=== PATIENT | female | born 1990 | race Caucasian/White ===

== ENCOUNTER 2019-06-27 11:07 | Emergency (ER) | payer BC, SELFPAY ==
[2019-06-27 11:15] VITALS: BP 120/70; PULSE 87; RESP 16; TEMP 37.3; O2SAT 100
--- NOTE | 2019-06-27 11:38 | ED.URI ---
HPI - URI/Sore Throat General Chief Complaint: Upper Respiratory Infection Stated Complaint: FEVER/BODY ACHES/HEADACHE/CHILLS/SORE THROAT Time Seen by Provider: 06/27/19 11:26 Source: patient Mode of arrival: ambulatory Limitations: no limitations History of Present Illness HPI Narrative: 28-year-old female presents for evaluation of symptoms that developed today. She is reporting a fever max 100.2, body aches, headache, sore throat, rhinorrhea, fatigue, bilateral eye pain. She has used no medications for her symptoms. She has been exposed to multiple family members with influenza. She did not get a flu shot this season. She denies any tobacco, vaping, marijuana use. She denies any medical conditions. Denies any wheezing, shortness of breath, chest pain, rash, abnormal swelling, confusion, weakness Related Data Allergies Allergy/AdvReac Type Severity Reaction Status Date / Time acetaminophen [From Percocet] Allergy Itching Verified 06/27/19 11:22 oxycodone [From Percocet] Allergy Itching Verified 06/27/19 11:22 Review of Systems Review of Systems: Narrative: CONSTITUTIONAL: Reports fever, chills, sweats. EYES: Denies visual changes, redness, or discharge. ENT: Reports rhinorrhea, congestion, sore throat.denies otalgia. CARDIOVASCULAR: Denies chest pain, palpitations, or edema. RESPIRATORY: Denies dyspnea. Reports cough GASTROINTESTINAL: Denies abdominal pain, nausea, vomiting, or diarrhea. GENITOURINARY: Denies dysuria, hematuria, urinary frequency, malordous urine SKIN: Denies rash or itching. MUSCULOSKELETAL: Denies back pain, joint pain, swelling. Reports myalgias NEUROLOGIC: Denies numbness, weakness. Reports headache PSYCHIATRIC: Denies anxiety or depression. All systems reviewed & are unremarkable except as noted in HPI and below PMFSH Family History Family History Father Family history of thyroid disease Social History Social History Smoking status: Never smoker Comments At the time of my signature, I agree with nursing past medical, surgical, social and family history. There is no relevant family history pertinent to the presenting complaint. Exam Narrative: Exam Narrative: GENERAL: No distress, well appearing, well nourished, alert and calm HEAD: Normocephalic, atraumatic. No sinus tenderness noted EYES: Pupils equal, round. Extraocular movements intact. Conjunctivae without redness or drainage. EARS: Tympanic membranes without erythema. TM landmarks intact with good light reflex. Ear canals without discharge. NOSE: Nares patent. Nasal turbinates noninflamed. No nasal discharge MOUTH: Mucous membranes moist. No lesions. No cyanosis. Dentition grossly normal. THROAT: Oropharynx without signs erythema, exudates or lesions. Tonsils not enlarged. NECK: Supple. No lymphadenopathy. RESPIRATORY: Airway patent. Chest clear to auscultation bilaterally. Breath sounds equal bilaterally. No retractions. CARDIOVASCULAR: Regular rate and rhythm. No murmurs, rubs, gallops, or clicks. Capillary refill <2 seconds. SKIN: Color normal. Warm and dry. No rashes. NEURO: Alert. Motor intact in all extremities. Muscle tone normal. Course Course Emergency Course: Obtained influenza and strep swabs. Vital Signs Vital signs: Vital Signs Temperature 99.1 F 06/27/19 11:15 Pulse Rate 87 06/27/19 11:15 Respiratory Rate 16 06/27/19 11:15 Blood Pressure 120/70 06/27/19 11:15 Pulse Oximetry 100 06/27/19 11:15 Temperature 99.1 F 06/27/19 11:15 Pulse Rate 87 06/27/19 11:15 Respiratory Rate 16 06/27/19 11:15 Blood Pressure 120/70 06/27/19 11:15 Pulse Oximetry 100 06/27/19 11:15 Reviewed MDM - URI/Sore Throat MDM Narrative Medical decision making narrative: Patient is in no acute distress and is non toxic appearing. She appears well-hydrated with no respiratory distress
== END 2019-06-27 11:51 | disposition home or self-care (01) ==
PROVIDERS: Emergency Provider Nurse Practitioner; PCP Family Medicine
DX: J10.1 Influenza due to other identified influenza virus with other respiratory manifestations (principal)
CPT/HCPCS: 87081; 87804; 87880; 99213; G0463

== ENCOUNTER 2022-11-21 12:59 | Outpatient (CLI) | payer BC, SELFPAY ==
--- NOTE | ~2022-11-21 | XR_ITS ---
EXAMINATION: XR hysterosalpingogram DATE: 11/21/2022 15:14 CDT INDICATION: Infertility TECHNIQUE: Fluoroscopy was provided for a hysterosalpingogram performed by Dr. Rivera. FINDINGS: Initial all round butcher radiographically of the pelvis demonstrates a right pelvic phlebolith. There is normal intraluminal morphology of the uterus. There are multiple gas bubbles and the uterus. The fallopian tubes are normal in appearance and are widely patent, with free spill into the peritoneal c avity from both sides. IMPRESSION: 1. Normal hysterosalpingogram. The uterus demonstrates normal intraluminal morphology and both fall opian tubes are patent. Reviewed, dictated and finalized at location A. IMPRESSION: 1. Normal hysterosalpingogram. The uterus demonstrates normal intraluminal mo rphology and both fallopian tubes are patent.
[2022-11-21 14:39] LABS: Beta HCG Quantitative < 2.39 mIU/ML
--- NOTE | 2022-11-21 15:24 | P.OP_ITS ---
Procedure Note - Detailed Date of Procedure 11/21/22 Pre-op Diagnosis female infertility Post-op Diagnosis Same Procedure Performed Hysterosalpingogram Surgeon Aj Rivera MD Anesthesia None Indications unexplained infertility Findings normal hysterosalpingogram Description of Procedure the patient was placed on the fluoroscopy table. A speculum was placed in the vagina. Cervix was grasped with a tenaculum. The catheter was placed the uterine cavity and the bulb was inflated. The speculum was removed with the angiocath still placed in the intrauterine cavity. Dye was then removed. The catheter. Fluoroscopic images obtained this process. Patient experienced some moderate to severe discomfort. The balloon of the catheter was deflated and the catheter was removed while the images were being obtained. The procedure was terminated. patient lost consciousness, had some rapid limb and neck movement, it is likely not seizure, did have some similarity to seizure activity movementl. There were no complications. Estimated Blood Loss 0 Complications Other complications ( patient lost consciousness, had some rapid limb and neck m ovement, it is likely not seizure, did have some similarity to seizure activity movement) Condition Stable Disposition Other
== END 2022-11-21 13:00 | disposition home or self-care (01) ==
PROVIDERS: PCP Family Medicine; Visit Provider Obstetrics & Gynecology
DX: N97.9 Female infertility, unspecified (principal)
CPT/HCPCS: 36415; 58340; 74740; 84702; Q9966

== ENCOUNTER 2024-03-18 13:09 | Outpatient (CLI) | payer BC, SELFPAY ==
[2024-03-18 14:09] LABS: Add Urine Microscopic? YES; Appearance Urine Cloudy (Clear); Bacteria Urine 1+ /hpf; Bilirubin Urine Negative (Negative); Blood Urine Negative (Negative); Color Urine Yellow (Yellow); Glucose Urine UA Negative (Negative); Ketones Urine Trace mg/dL (Negative); Leukocyte Esterase Ur Trace LEU/UL (Negative); Nitrate Urine Negative (Negative); Non Pathogenic Casts 0-2; Protein Urine Trace mg/dL (Negative); RBC Urine 0-2 /hpf (0-2); Specific Grav Ur 1.025 (1.001-1.035); Squamous Epithelial Cell Urine Occasional /hpf (Few); pH Urine 6.5 (5.0-9.0)
[2024-03-18 14:20] VITALS: BP 132/88; PULSE 95
[2024-03-18 14:24] LABS: OBXCEM ROM Plus Negative (Negative)
== END 2024-03-18 14:20 | disposition home or self-care (01) ==
LOC: ANHOBOP 13:48 → ANHLDR 13:49
PROVIDERS: PCP Obstetrics & Gynecology; Visit Provider Obstetrics & Gynecology
DX: O42.90 Premature rupture of membranes, unspecified as to length of time between rupture and onset of labor, unspecified weeks of gestation (principal); Z3A.00 Weeks of gestation of pregnancy not specified
CPT/HCPCS: 59025; 81001; 84112; 87086

== ENCOUNTER 2024-03-20 14:53 | Outpatient (RCR) | payer BC, SELFPAY ==
--- NOTE | ~2024-03-20 | US_ITS ---
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 FINDINGS: 38 weeks and 0 days There is a single intrauterine gestation in vertex presentation. The placenta is fundal without plac enta previa. cardiac activity and movement is noted with a heart rate of 137 beats per minute. Biophysical profile: breathin of 2 movement: 2 of 2 tone: 2 of 2 Amniotic flu pocket: 2 of 2 Total score: 8 of 8 The deepest vertical pocket of fluid measures 7.6 cm IMPRESSION: 1. Single intrauterine gestation in vertex presentation. 2: Total biophysical profile score of 8 out of 8. Reviewed, dictated and finalized at location A. INE OPERATOR GENERAL
== END 2024-04-03 17:55 | disposition home or self-care (01) ==
LOC: ANHOBOP 14:53
PROVIDERS: PCP Obstetrics & Gynecology; Visit Provider Obstetrics & Gynecology
DX: O36.63X0 Maternal care for excessive fetal growth, third trimester, not applicable or unspecified (principal); Z3A.38 38 weeks gestation of pregnancy
CPT/HCPCS: 76819

== ENCOUNTER 2024-03-27 04:55 | Inpatient (IN) | payer BC, SELFPAY ==
[2024-03-27] VITALS (246 sets, daily range): BP systolic 93–144; BP diastolic 51–95; PULSE 25–153; RESP 13–20; TEMP 36.8–37.4; O2SAT 75–100; BMI 28.0
--- NOTE | 2024-03-27 05:05 | LDADM ---
This patient, Graciela Ramírez, was admitted to Labor/Delivery/Recovery [facility] on 03/27/24 at 04:55. Plans for labor, pain management and were discussed with patient. Patient/family oriented to hospital policies and general routines including ID bracelet, bed and alarms, visiting hours, pain management, procedures, bathroom and other care routines, personal items, smoking policy, room service/diet and guest tray routines, infant security routines, and visiting hours. Patient/Family are encouraged to report perceived risks to care and to ask questions if they do not understand what they are told or what they should do. See OBIX for further documentation.
[2024-03-27 06:23] LABS: Basophils Absolute Auto 0.1 K/mm3 (0.0-0.1); Basophils Percent Auto 0.5 % (0.2-1.2); Eosinophils Absolute Auto 0.1 K/mm3 (0-0.3); Eosinophils Percent Auto 1.3 % (0-4.4); Hemoglobin 12.8 g/dL (12.0-15.0); Immature Granulocyte Absolute 0.07 K/mm3 (0.00-0.031); Immature Granulocyte Percent A 0.7 % (0-0.5); Lymphocytes Absolute Auto 1.56 K/mm3 (0.9-3.2); Lymphocytes Percent Auto 15.8 % (18.3-44.2); Mean Corpuscular HGB Conc 33.7 g/dl (32-36); Mean Corpuscular Hemoglobin 29.1 pg (26-34); Mean Corpuscular Volume 86.4 fl (80-100); Mean Platelet Volume 10.1 fl (7.4-10.4); Monocytes Absolute Auto 0.7 K/mm3 (0.1-0.6); Monocytes Percent Auto 6.6 % (2.6-8.5); Neutrophils Absolute Auto 7.4 K/mm3 (1.3-6.7); Neutrophils Percent Auto 75.1 % (45.5-73.1); Platelet Count Result 245 k/mm3 (150-375); Red Cell Distribution Width 15.3 % (11.5-14.5); White Blood Count 9.9 K/mm3 (4.5-10.0)
--- NOTE | 2024-03-27 06:42 | P.PNAN_ITS ---
Anes - Eval Pre Procedure Procedure: labor epidural Date/Time: 03/27/24 06:42 Preop Diagnosis: pain during labor Pre Op Diagnosis: IOL Patient Data Age: 33 Gender: F Height: 1.75 m Weight: 86 kg Last Vital Signs Pulse 87 03/27/24 06:30 BP 132/91 H 03/27/24 06:30 Pulse Ox 98 03/27/24 06:39 Allergies Allergy/AdvReac Type Severity Reaction Status Date / Time oxycodone [From Percocet] Allergy Mild Itching Verified 03/04/24 12:30 nitrofurantoin AdvReac Intermediate vertigo Verified 03/04/24 12:30 Home Medications Medication Instructions Recorded Confirmed Type bupropion HCl 150 mg 24 hr tablet, 150 mg PO QAM #90 tabs 06/19/23 03/18/24 Rx extended release (Wellbutrin XL) naltrexone 1.5 mg capsule 3 mg PO DAILY 01/22/24 03/18/24 History aspirin 81 mg tablet 162 mg PO DAILY 03/04/24 03/18/24 History ferrous sulfate 325 mg (65 mg 45 mg PO BID 03/04/24 03/27/24 History iron) tablet vits no.126-ferrous fum 1 tablet PO DAILY 03/04/24 03/18/24 History 28 mg iron-folic acid 800 mcg tablet (Classic ) aripiprazole 10 mg tablet 10 mg PO DAILY #90 tabs 03/11/24 03/27/24 Rx sertraline 100 mg tablet (Zoloft) 150 mg PO DAILY 03/18/24 03/27/24 History Laboratory Tests 03/27/24 06:09 WBC 9.9 K/mm3 (4.5-10.0) RBC 4.40 M/mm3 (4.2-5.4) Hgb 12.8 g/dL (12.0-15.0) Hct 38.0 % (37.0-47.0) MCV 86.4 fl (80-100) MCH 29.1 pg (26-34) MCHC 33.7 g/dl (32-36) RDW 15.3 H % (11.5-14.5) Plt Count 245 k/mm3 (150-375) MPV 10.1 fl (7.4-10.4) Immature Gran % (Auto) 0.7 H % (0-0.5) Neut % (Auto) 75.1 H % (45.5-73.1) Lymph % (Auto) 15.8 L % (18.3-44.2) [place] % (Auto) 6.6 % (2.6-8.5) Eos % (Auto) 1.3 % (0-4.4) Baso % (Auto) 0.5 % (0.2-1.2) Lymph # (Auto) 1.56 K/mm3 (0.9-3.2) [place] # (Auto) 0.7 H K/mm3 (0.1-0.6) Eos # (Auto) 0.1 K/mm3 (0-0.3) Baso # (Auto) 0.1 K/mm3 (0.0-0.1) Abs Immat Gran (auto) 0.07 H K/mm3 (0.00-0.031) Absolute Neuts (auto) 7.4 H K/mm3 (1.3-6.7) Absolute Nucleated RBC 0.000 K/mm3 (0.0-0.012) Nucleated RBC % 0.0 % (0.0-0.2) RPR Pending HIV 1&2 Ab/P24 Ag 4thGn Pending Patient hx anesthesia problems: none Family hx anesthesia problems: none Results Review: All pre-operative results and documents have been reviewed as part of the pre- operative evaluation. [facility], [facility] Past Medical History Medical History Allergic rhinitis COVID-19 Granuloma annulare History of chicken pox History of hysterosalpingogram TMJ arthropathy (~2006) Surgical History Surgical History History of hip surgery (~2012) periacetabular osteotomy S/P hip arthroscopy (~2011) [place] teeth extracted (~2009) Family History Family History Father Family history of thyroid disease Social History Social History Smoking status: Never smoker Alcohol intake: current Drinks per week: 0 Alcohol use details: social drinker Substance use: never Do You Feel Safe in your Home?: Yes Lack of Transportation: No Lack of Food: Never True Current Housing: I Have Housing Concerned About Future Housing: No Difficulty Paying Gas/Electric Bills: No Difficulty Paying for Meds: No Currently Unemployed: No Education: Master's Degree or Higher Difficulty w/ Childcare or Family Care: No Occupation/Education: occupation 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
[2024-03-27] MEDS: LACTATED RINGERS 1,000 ML 125 ML IV CONT ×3 (06:45→12:39)
[2024-03-27 07:28] LABS: HIV 1/2 Ab P24 Ag Result Negative (Negative)
[2024-03-27 07:30] LABS: Rapid Plasma Reagin Non-Reactive (NonReactive)
--- NOTE | 2024-03-27 07:35 | PM.IMHP ---
H&P: HPI History of Present Illness Date/Time: 03/27/24 07:35 Chief Complaint: pt here today for elective IOL, complicated by LGA, IVF , anemia, anxiety and depression. hx of hip dysplasia Review of Systems Review of Systems: All systems reviewed & are unremarkable except as noted in HPI and below PMFSH Past Medical History Medical History Allergic rhinitis COVID-19 Granuloma annulare History of chicken pox History of hysterosalpingogram TMJ arthropathy (~2006) Surgical History Surgical History History of hip surgery (~2012) periacetabular osteotomy S/P hip arthroscopy (~2011) [place] teeth extracted (~2009) Family History Family History Father Family history of thyroid disease Social History Social History Smoking status: Never smoker Alcohol intake: current Drinks per week: 0 Alcohol use details: social drinker Substance use: never Do You Feel Safe in your Home?: Yes Lack of Transportation: No Lack of Food: Never True Current Housing: I Have Housing Concerned About Future Housing: No Difficulty Paying Gas/Electric Bills: No Difficulty Paying for Meds: No Currently Unemployed: No Education: Master's Degree or Higher Difficulty w/ Childcare or Family Care: No Occupation/Education: occupation 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 Gender identity (if verbalized by the patient): Female Spiritual care concerns: No Meds Home Medications and Allergies Home Medications Medication Instructions Recorded Confirmed Type bupropion HCl 150 mg 24 hr tablet, 150 mg PO QAM #90 tabs 06/19/23 03/18/24 Rx extended release (Wellbutrin XL) naltrexone 1.5 mg capsule 3 mg PO DAILY 01/22/24 03/18/24 History aspirin 81 mg tablet 162 mg PO DAILY 03/04/24 03/18/24 History ferrous sulfate 325 mg (65 mg 45 mg PO BID 03/04/24 03/27/24 History iron) tablet vits no.126-ferrous fum 1 tablet PO DAILY 03/04/24 03/18/24 History 28 mg iron-folic acid 800 mcg tablet (Classic ) aripiprazole 10 mg tablet 10 mg PO DAILY #90 tabs 03/11/24 03/27/24 Rx sertraline 100 mg tablet (Zoloft) 150 mg PO DAILY 03/18/24 03/27/24 History Allergies Allergy/AdvReac Type Severity Reaction Status Date / Time oxycodone [From Percocet] Allergy Mild Itching Verified 03/04/24 12:30 nitrofurantoin AdvReac Intermediate vertigo Verified 03/04/24 12:30 Vital Signs Vital Signs - 24 hr 03/27/24 05:08 03/27/24 05:09 03/27/24 05:13 Temperature Pulse Rate 102 H Blood Pressure 137/95 H Pulse Oximetry 100 99 03/27/24 05:16 03/27/24 05:17 03/27/24 05:22 Temperature Pulse Rate 99 Blood Pressure 133/88 Pulse Oximetry 83 L 95 98 03/27/24 05:25 03/27/24 05:25 03/27/24 05:25 Temperature Pulse Rate Blood Pressure Pulse Oximetry 100 100 100 03/27/24 05:27 03/27/24 05:27 03/27/24 05:30 Temperature Pulse Rate 82 Blood Pressure 127/81 Pulse Oximetry 100 100 03/27/24 05:32 03/27/24 05:37 03/27/24 05:42 Temperature Pulse Rate Blood Pressure Pulse Oximetry 97 97 97 03/27/24 05:47 03/27/24 05:52 03/27/24 05:57 Temperature Pulse Rate Blood Pressure Pulse Oximetry 97 95 96 03/27/24 06:00 03/27/24 06:02 03/27/24 06:07 Temperature Pulse Rate 84 Blood Pressure 127/86 Pulse Oximetry 95 97 03/27/24 06:09 03/27/24 06:14 03/27/24 06:19 Temperature Pulse Rate Blood Pressure Pulse Oximetry 96 97 97 03/27/24 06:24 03/27/24 06:29 03/27/24 06:30 Temperature Pulse Rate 87 Blood Pressure 132/91 H Pulse Oximetry 97 98 03/27/24 06:34 03/27/24 06:39 03/27/24 06:44 Temperature Pulse Rate Blood Pressure Pulse Oximetry 98 98 98 03/27/24 06:49 03/27/24 06:54 03/27/24 06:57 Temperature Pulse Rate Blood Pressure Pulse Oximetry 99 98 82 L 03/27/24 06:57 03/27/24 06:58 03/27/24 07:04 Temperature Pulse Rate Blood Pressure Pulse Oximetry 86 L 91 98 03/27/24 07:09 03/27/24 07:14 03/27/24 07:19 Temperature Pulse Rate Blood Pressure Pulse Oximetry 98 98 98 03/27/24 07:24 03/27/24 06:45 03/27/24 07:29 Temperature 37.3 C Pulse Rate Blood Pressure Pulse Oximetry 99 98 03/27/24 07:30 03/27/24 07:30 Temperature Pulse Rate 93 Blood Pressure 115/66 Pulse Oximetry 100 99 Exam Const: General: cooperative and healthy appearing Resp: Effort & Inspection: normal respiratory effort Cardio: Rate: regular rate GI: Inspection: normal to inspection Back/Spine/Pelvis: Back: no CVA tenderness Skin: General skin exam: normal color Neuro: General: patient oriented x3 Extrem: General: normal to inspection Psych: Appearance: grossly normal H&P: Results Labs Labs: Short CBC 03/27/24 Range/Units 06:09 WBC 9.9 (4.5-10.0) K/mm3 Hgb 12.8 (12.0-15.0) g/dL Hct 38.0 (37.0-47.0) % Plt Count 245 (150-375) k/mm3 Assessment and Plan Assessment and plan (1) In vitro fertilization: Code(s): Z31.83 - Encounter for assisted reproductive fertility procedure cycle Status: Acute (2) Bipolar 1 disorder, manic, mild: Code(s): F31.11 - Bipolar disorder, current episode manic without psychotic features, mild Status: Acute (3) LGA (large for gestational age) fetus: Status: Acute Plan IOL IVF SVE 1-2/60/-2 AROM small amount of clear odorless fluid, IUPC placed anticipate vaginal delivery
[2024-03-27] MEDS: SODIUM CHLORIDE 0.9% IV 300 ML 600 ML I-UTERINE (08:43)
[2024-03-27] MEDS: SODIUM CHLORIDE 0.9% IV 1,000 ML 150 ML I-UTERINE ×2 (09:33→14:13)
[2024-03-27] MEDS: OXYTOCIN 30 UNITS/NS 500 ML 30 UNITS/500 ML BAG IV CONT (10:01)
[2024-03-27] MEDS: ACETAMINOPHEN 500 MG TABLET 1000 MG PO (18:05)
[2024-03-27] MEDS: AZITHROMYCIN 500 MG/NS 250 ML 500 MG/250 ML BAG 250 MG IVPB (18:06)
[2024-03-27] MEDS: FAMOTIDINE 20 MG/2 ML VIAL IV PUSH (18:11)
[2024-03-27] MEDS: ONDANSETRON INJ 4 MG/2 ML VIAL IV PUSH ×2 (18:11→22:43)
--- NOTE | 2024-03-27 18:18 | PM.IMHP ---
H&P: HPI History of Present Illness Date/Time: 03/27/24 18:18 Chief Complaint: labor Narrative: 33-year-old primiparous female at 39 weeks who presented for induction of labor at 39 weeks electively.. there is nonreassuring heart tones and the induction is failed. We agreed to proceed with delivery. The patient understands the details of the procedure. The procedure has been explained in detail. She understands the risks. She understands that injuries may occur that result in hospitalization, more surgery, and severe illness. She understands risk of hemorrhage and infection. She denies any chest pain or shortness of breath. She denies any nausea, vomiting, fever, chills. Review of Systems Review of Systems: All systems reviewed & are unremarkable except as noted in HPI and below Constitutional: Constitutional: Denies chills, Denies fatigue, Denies fever(s) and Denies weakness Eyes: Eyes: Denies blurry vision, Denies change in vision, Denies loss of peripheral vision, Denies loss of vision, Denies other visual disturbances and Denies eye pain ENT: Denies vertigo, Denies dizziness, Denies hearing loss, Denies mouth pain, Denies nasal obstruction, Denies neck mass and Denies neck pain Cardiovascular: Cardiovascular: Denies chest pain, Denies diaphoresis, Denies syncope, Denies leg edema and Denies dyspnea Respiratory: Respiratory: Denies chest congestion, Denies cough, Denies hemoptysis, Denies dyspnea and Denies wheezing Gastrointestinal: Gastrointestinal: Denies abdominal pain, Denies constipation, Denies diarrhea, Denies nausea and Denies vomiting Genitourinary: Genitourinary: Denies hematuria, Denies change in libido, Denies nocturia, Denies genital lesions, Denies flank pain and Denies urinary urgency Musculoskeletal: Musculoskeletal: Denies abnormal gait, Denies back pain, Denies myalgias, Denies arthralgias, Denies joint swelling, Denies muscle weakness and Denies neck pain Integumentary/Breasts: Skin/Breast: Denies swelling, Denies breast pain, Denies breast mass, Denies dry skin, Denies nipple discharge, Denies unusual bruising and Denies jaundice Neurologic: Denies Neuro-related abnormal movements, Denies Abnormal speech present, Denies abnormal gait, Denies behavioral changes, Denies confusion, Denies vertigo, Denies dizziness, Denies syncope, Denies loss of vision, Denies memory loss, Denies convulsions and Denies weakness Psychiatric: Psychiatric: Denies abnormal sleep pattern, Denies behavioral changes, Denies change in libido, Denies confusion, Denies depression, Denies anhedonia and Denies memory loss Endocrine: Endocrine: Reports no additional endocrine complaints, Denies change in libido and Denies fatigue Hematologic/Lymphatic: Hematologic/Lymphatic: Reports no additional hematologic/lymphatic complaints Allergic/Immunologic: Allergic/Immunologic: Reports no additional allergic/immunologic complaints and Denies wheezing PMFSH Past Medical History Medical History Allergic rhinitis COVID-19 Granuloma annulare History of chicken pox History of hysterosalpingogram TMJ arthropathy (~2006) Surgical History Surgical History History of hip surgery (~2012) periacetabular osteotomy S/P hip arthroscopy (~2011) [place] teeth extracted (~2009) Family History Family History Father Family history of thyroid disease Social History Social History Smoking status: Never smoker Alcohol intake: current Drinks per week: 0 Alcohol use details: social drinker Substance use: never Do You Feel Safe in your Home?: Yes Lack of Transportation: No Lack of Food: Never True Current Housing: I Have Housing Concerned About Future Housing: No Difficulty Paying Gas/Electric Bills: No Difficulty Paying for Meds: No Currently Unemployed: No Education: Master's Degree or Higher Difficulty w/ Childcare or Family Care: No Occupation/Education: occupation 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 Gender identity (if verbalized by the patient): Female Spiritual care concerns: No Meds Home Medications and Allergies Home Medications Medication Instructions Recorded Confirmed Type bupropion HCl 150 mg 24 hr tablet, 150 mg PO QAM #90 tabs 06/19/23 03/18/24 Rx extended release (Wellbutrin XL) naltrexone 1.5 mg capsule 3 mg PO DAILY 01/22/24 03/18/24 History aspirin 81 mg tablet 162 mg PO DAILY 03/04/24 03/18/24 History ferrous sulfate 325 mg (65 mg 45 mg PO BID 03/04/24 03/27/24 History iron) tablet vits no.126-ferrous fum 1 tablet PO DAILY 03/04/24 03/18/24 History 28 mg iron-folic acid 800 mcg tablet (Classic ) aripiprazole 10 mg tablet 10 mg PO DAILY #90 tabs 03/11/24 03/27/24 Rx sertraline 100 mg tablet (Zoloft) 150 mg PO DAILY 03/18/24 03/27/24 History Allergies Allergy/AdvReac Type Severity Reaction Status Date / Time oxycodone [From Percocet] Allergy Mild Itching Verified 03/04/24 12:30 nitrofurantoin AdvReac Intermediate vertigo Verified 03/04/24 12:30 Vital Signs Vital Signs - 24 hr 03/27/24 05:08 03/27/24 05:09 03/27/24 05:13 Temperature Pulse Rate 102 H Blood Pressure 137/95 H Pulse Oximetry 100 99 03/27/24 05:16 03/27/24 05:17 03/27/24 05:22 Temperature Pulse Rate 99 Blood Pressure 133/88 Pulse Oximetry 83 L 95 98 03/27/24 05:25 03/27/24 05:25 03/27/24 05:25 Temperature Pulse Rate Blood Pressure Pulse Oximetry 100 100 100 03/27/24 05:27 03/27/24 05:27 03/27/24 05:30 Temperature Pulse Rate 82 Blood Pressure 127/81 Pulse Oximetry 100 100 03/27/24 05:32 03/27/24 05:37 03/27/24 05:42 Temperature Pulse Rate Blood Pressure Pulse Oximetry 97 97 97 03/27/24 05:47 03/27/24 05:52 03/27/24 05:57 Temperature Pulse Rate Blood Pressure Pulse Oximetry 97 95 96 03/27/24 06:00 03/27/24 06:02 03/27/24 06:07 Temperature Pulse Rate 84 Blood Pressure 127/86 Pulse Oximetry 95 97 03/27/24 06:09 03/27/24 06:14 03/27/24 06:19 Temperature Pulse Rate Blood Pressure Pulse Oximetry 96 97 97 03/27/24 06:24 03/27/24 06:29 03/27/24 06:30 Temperature Pulse Rate 87 Blood Pressure 132/91 H Pulse Oximetry 97 98 03/27/24 06:34 03/27/24 06:39 03/27/24 06:44 Temperature Pulse Rate Blood Pressure Pulse Oximetry 98 98 98 03/27/24 06:49 03/27/24 06:54 03/27/24 06:57 Temperature Pulse Rate Blood Pressure Pulse Oximetry 99 98 82 L 03/27/24 06:57 03/27/24 06:58 03/27/24 07:04 Temperature Pulse Rate Blood Pressure Pulse Oximetry 86 L 91 98 03/27/24 07:09 03/27/24 07:14 03/27/24 07:19 Temperature Pulse Rate Blood Pressure Pulse Oximetry 98 98 98 03/27/24 07:24 03/27/24 06:45 03/27/24 07:29 Temperature 99.1 F Pulse Rate Blood Pressure Pulse Oximetry 99 98 03/27/24 07:30 03/27/24 07:30 03/27/24 07:35 Temperature Pulse Rate 93 Blood Pressure 115/66 Pulse Oximetry 100 99 100 03/27/24 07:40 03/27/24 07:45 03/27/24 07:50 Temperature Pulse Rate Blood Pressure Pulse Oximetry 100 98 99 03/27/24 07:55 03/27/24 08:00 03/27/24 08:05 Temperature Pulse Rate 84 Blood Pressure 123/60 Pulse Oximetry 100 99 99 03/27/24 08:10 03/27/24 08:15 03/27/24 08:20 Temperature Pulse Rate Blood Pressure Pulse Oximetry 100 100 100 03/27/24 08:25 03/27/24 08:30 03/27/24 08:34 Temperature Pulse Rate 87 Blood Pressure 120/66 Pulse Oximetry 100 100 03/27/24 08:35 03/27/24 08:38 03/27/24 08:40 Temperature Pulse Rate 88 91 90 Blood Pressure 116/53 L 124/77 133/74 Pulse Oximetry 100 100 03/27/24 08:42 03/27/24 08:45 03/27/24 08:48 Temperature Pulse Rate 95 89 89 Blood Pressure 123/79 130/74 130/76 Pulse Oximetry 99 03/27/24 08:50 03/27/24 08:51 03/27/24 08:54 Temperature Pulse Rate 85 91 Blood Pressure 127/81 133/82 Pulse Oximetry 100 03/27/24 08:55 03/27/24 08:57 03/27/24 09:00 Temperature Pulse Rate 88 105 H Blood Pressure 127/81 93/65 L Pulse Oximetry 100 100 03/27/24 09:03 03/27/24 09:05 03/27/24 09:06 Temperature Pulse Rate 90 90 Blood Pressure 119/82 129/71 Pulse Oximetry 100 03/27/24 09:09 03/27/24 09:10 03/27/24 09:12 Temperature Pulse Rate 82 98 Blood Pressure 128/82 112/83 Pulse Oximetry 99 03/27/24 09:15 03/27/24 09:20 03/27/24 09:24 Temperature Pulse Rate 86 Blood Pressure 123/68 Pulse Oximetry 100 100 100 03/27/24 09:29 03/27/24 09:30 03/27/24 09:34 Temperature Pulse Rate 78 Blood Pressure 105/57 L Pulse Oximetry 100 100 03/27/24 09:39 03/27/24 09:44 03/27/24 09:45 Temperature Pulse Rate 80 Blood Pressure 112/55 L Pulse Oximetry 100 100 03/27/24 09:49 03/27/24 09:54 03/27/24 09:59 Temperature Pulse Rate Blood Pressure Pulse Oximetry 100 100 100 03/27/24 10:00 03/27/24 10:04 03/27/24 10:09 Temperature Pulse Rate 76 Blood Pressure 109/57 L Pulse Oximetry 100 100 03/27/24 10:14 03/27/24 10:15 03/27/24 10:19 Temperature Pulse Rate 87 Blood Pressure 133/87 Pulse Oximetry 100 100 03/27/24 10:08 03/27/24 10:24 03/27/24 10:29 Temperature 98.8 F Pulse Rate Blood Pressure Pulse Oximetry 100 100 03/27/24 10:30 03/27/24 10:30 03/27/24 10:30 Temperature Pulse Rate Blood Pressure 144/78 H Pulse Oximetry 100 100 03/27/24 10:30 03/27/24 10:35 03/27/24 10:40 Temperature Pulse Rate 84 Blood Pressure Pulse Oximetry 100 100 03/27/24 10:45 03/27/24 10:50 03/27/24 10:55 Temperature Pulse Rate 81 Blood Pressure 132/84 Pulse Oximetry 100 100 100 03/27/24 11:00 03/27/24 11:05 03/27/24 11:10 Temperature Pulse Rate 74 Blood Pressure 127/79 Pulse Oximetry 100 100 98 03/27/24 11:15 03/27/24 11:20 03/27/24 11:23 Temperature Pulse Rate 68 Blood Pressure 122/73 Pulse Oximetry 99 100 03/27/24 11:25 03/27/24 11:30 03/27/24 11:35 Temperature Pulse Rate 75 Blood Pressure 119/60 Pulse Oximetry 99 99 99 03/27/24 11:40 03/27/24 11:45 03/27/24 11:50 Temperature Pulse Rate 104 H Blood Pressure 134/75 Pulse Oximetry 99 100 100 03/27/24 11:55 03/27/24 12:00 03/27/24 12:03 Temperature Pulse Rate 87 Blood Pressure 142/82 H Pulse Oximetry 100 100 100 03/27/24 12:03 03/27/24 12:04 03/27/24 12:09 Temperature Pulse Rate Blood Pressure Pulse Oximetry 100 100 100 03/27/24 12:14 03/27/24 12:15 03/27/24 12:19 Temperature Pulse Rate 79 Blood Pressure 121/71 Pulse Oximetry 100 100 03/27/24 12:24 03/27/24 12:29 03/27/24 12:30 Temperature Pulse Rate 84 Blood Pressure 111/66 Pulse Oximetry 97 98 03/27/24 12:34 03/27/24 12:39 03/27/24 12:44 Temperature Pulse Rate Blood Pressure Pulse Oximetry 100 100 100 03/27/24 12:45 03/27/24 12:49 03/27/24 12:54 Temperature Pulse Rate 84 Blood Pressure 124/78 Pulse Oximetry 100 98 03/27/24 12:59 03/27/24 13:00 03/27/24 13:04 Temperature Pulse Rate 84 Blood Pressure 131/83 Pulse Oximetry 97 100 03/27/24 13:09 03/27/24 13:14 03/27/24 13:15 Temperature Pulse Rate 103 H Blood Pressure 107/77 Pulse Oximetry 100 100 03/27/24 13:19 03/27/24 13:23 03/27/24 13:28 Temperature Pulse Rate Blood Pressure Pulse Oximetry 99 93 98 03/27/24 13:30 03/27/24 13:33 03/27/24 13:38 Temperature Pulse Rate 99 Blood Pressure 119/80 Pulse Oximetry 100 100 03/27/24 13:38 03/27/24 13:43 03/27/24 13:45 Temperature Pulse Rate 100 Blood Pressure 114/68 Pulse Oximetry 100 100 03/27/24 13:48 03/27/24 13:53 03/27/24 13:58 Temperature Pulse Rate Blood Pressure Pulse Oximetry 100 100 100 03/27/24 14:00 03/27/24 14:03 03/27/24 14:08 Temperature Pulse Rate 100 Blood Pressure 118/73 Pulse Oximetry 100 100 03/27/24 14:13 03/27/24 14:15 03/27/24 14:12 Temperature 98.2 F Pulse Rate 74 Blood Pressure 113/59 L Pulse Oximetry 100 03/27/24 14:18 03/27/24 14:23 03/27/24 14:29 Temperature Pulse Rate Blood Pressure Pulse Oximetry 100 100 97 03/27/24 14:30 03/27/24 14:34 03/27/24 14:39 Temperature Pulse Rate 75 Blood Pressure 115/51 L Pulse Oximetry 100 100 03/27/24 14:40 03/27/24 14:43 03/27/24 14:47 Temperature Pulse Rate 81 Blood Pressure 113/56 L Pulse Oximetry 100 100 03/27/24 14:48 03/27/24 14:53 03/27/24 14:58 Temperature Pulse Rate Blood Pressure Pulse Oximetry 100 100 100 03/27/24 15:00 03/27/24 15:02 03/27/24 15:07 Temperature Pulse Rate 79 Blood Pressure 114/65 Pulse Oximetry 100 100 03/27/24 15:12 03/27/24 15:15 03/27/24 15:17 Temperature Pulse Rate 80 Blood Pressure 109/57 L Pulse Oximetry 99 98 03/27/24 15:22 03/27/24 15:27 03/27/24 15:30 Temperature Pulse Rate 86 Blood Pressure 105/55 L Pulse Oximetry 99 99 03/27/24 15:32 03/27/24 15:37 03/27/24 15:42 Temperature Pulse Rate Blood Pressure Pulse Oximetry 100 100 99 03/27/24 15:45 03/27/24 15:47 03/27/24 15:52 Temperature Pulse Rate 84 Blood Pressure 105/57 L Pulse Oximetry 98 99 03/27/24 15:57 03/27/24 16:02 03/27/24 16:02 Temperature Pulse Rate Blood Pressure Pulse Oximetry 99 100 100 03/27/24 16:02 03/27/24 16:03 03/27/24 16:08 Temperature Pulse Rate Blood Pressure Pulse Oximetry 100 98 100 03/27/24 16:10 03/27/24 16:15 03/27/24 16:20 Temperature Pulse Rate 70 Blood Pressure 108/51 L Pulse Oximetry 100 100 100 03/27/24 16:25 03/27/24 16:30 03/27/24 16:35 Temperature Pulse Rate 80 Blood Pressure 112/73 Pulse Oximetry 100 99 100 03/27/24 16:40 03/27/24 16:45 03/27/24 16:50 Temperature Pulse Rate 74 Blood Pressure 118/76 Pulse Oximetry 100 100 100 03/27/24 16:55 03/27/24 16:56 03/27/24 17:00 Temperature Pulse Rate 77 Blood Pressure 124/80 Pulse Oximetry 100 96 03/27/24 17:01 03/27/24 17:06 03/27/24 17:11 Temperature Pulse Rate Blood Pressure Pulse Oximetry 100 100 100 03/27/24 17:12 03/27/24 17:12 03/27/24 17:15 Temperature Pulse Rate 95 Blood Pressure 119/84 Pulse Oximetry 75 L 76 L 03/27/24 17:17 03/27/24 17:21 03/27/24 17:26 Temperature Pulse Rate Blood Pressure Pulse Oximetry 100 97 100 03/27/24 17:28 03/27/24 17:28 03/27/24 17:33 Temperature Pulse Rate Blood Pressure Pulse Oximetry 77 L 77 L 99 03/27/24 17:38 03/27/24 17:43 03/27/24 17:51 Temperature Pulse Rate Blood Pressure Pulse Oximetry 100 100 75 L Exam Const: General: cooperative, healthy appearing, comfortable and no acute distress Orientation/consciousness: oriented to person, oriented to place and oriented to time HENMT: Head: normal to inspection Ears: external ears normal Face/Nose/Sinus: Normal external nose present and normal facial exam Face and sinus: normal facial exam Eyes: General: appearance normal, both eyes and all related structures Neck: Neck: normal visual inspection, trachea midline and supple Resp: Auscultation: clear to auscultation bilaterally, no crackles, no rales, no rhonchi and no wheezes Cardio: Rate: regular rate Rhythm: regular rhythm Heart sounds: no click, no murmurs and no rubs GI: GI Palp: No abdominal tenderness, No Soft to palpation, No Tenderness to palpation present (GI) and No Palpable mass present Auscultation: normal bowel sounds Skin: General skin exam: normal color and no rashes or lesions noted Neuro: General: oriented to person, oriented to place and oriented to time Extrem: General: normal to inspection, no joint enlargement, no clubbing, cyanosis or edema, no pedal edema and no calf tenderness Psych: Appearance: grossly normal Mental Status: mental status grossly normal Speech and movement: Normal speech and movement present H&P: Results Labs Labs: Short CBC 03/27/24 Range/Units 06:09 WBC 9.9 (4.5-10.0) K/mm3 Hgb 12.8 (12.0-15.0) g/dL Hct 38.0 (37.0-47.0) % Plt Count 245 (150-375) k/mm3 Assessment and Plan Assessment and plan (1) Non-reassuring heart tones complicating , antepartum: Code(s): O36.8390 - Maternal care for abnormalities of the heart rate or rhythm, unspecified trimester, not applicable or unspecified Status: Acute (2) Failed induction of labor: Code(s): O61.9 - Failed induction of labor, unspecified Status: Acute Plan this patient is a 33-year-old female with failed induction and nonreassuring heart tones. We agreed to perform delivery. She understands risks, benefits, and alternatives. She has completed informed consent process is ready to proceed.
--- NOTE | 2024-03-27 18:23 | WPDHPUPDATE1 ---
History and Physical Update Update Date/Time: 03/27/24 18:23 History and Physical has been reviewed, including an updated exam of the patient. There are NO changes in the patient's condition. Risks, benefits, and alternatives have been discussed and questions answered. Patient agrees to proceed with procedure.
--- NOTE | 2024-03-27 19:13 | W.PM.OBCSD ---
OB - Delivery Note Procedure Delivery date: 03/27/24 Pre-op diagnosis: Failed Induction of Labor and Non-Reassuring Status Post-op Diagnosis: Same Procedure Performed: Primary Surgeon: Kamar Rivera MD Anesthesia type: Spinal Description of Procedure/Findings: The patient was taken the operating room.? She was prepped and draped in dorsal supine position with a leftward tilt.? This was done after spinal anesthetic was applied.? A low-transverse skin incision was made and carried down till of the fascia with the knife.? The fascial incision was made with the knife.? The fascial incision was extended laterally with Juarez scissors.? The fascia was tented upward superiorly and inferiorly the rectus muscles were dissected off bluntly.? The rectus muscles were the midline.? The preperitoneal fat and peritoneum were dissected open bluntly at the superior aspect of the rectus muscles.? The peritoneal incision was extended superior and inferior with good position of bladder.? The uterine incision was made with a scalpel down to the level of the amniotic cavity.? The amniotic cavity was entered bluntly.? The was delivered.? The cord was clamped and cut and the infant was handed off to waiting pediatric staff.? Cord bloods were obtained.? The placenta was removed manually.? The uterus was exteriorized.? The uterus was cleared of all clots, debris and membranes.? The uterus was closed in 0 Vicryl running lock fashion.? An imbricating over a was placed along the incision line as well.? The uterus was returned to the abdomen.? The gutters were cleared of all clots and debris.? The fascia was closed with 0 Vicryl running fashion.? The subcutaneous tissue was irrigated pinpoint bleeders were cauterized.? The skin was closed with subcuticular absorbable lin.? The skin incision line was covered with glue.? The patient tolerated the procedure well.? She has taken recovery room in stable condition.? Sponge lap and needle counts were correct x2.? Estimated Blood Loss: 500 Pathology: None sent Complications: No immediate complications Condition: Stable
[2024-03-27] MEDS: KETOROLAC 15 MG/ML VIAL (*BKC) IV PUSH (22:42)
[2024-03-27] MEDS: ACETAMINOPHEN 325 MG TABLET 650 MG PO (22:42)
[2024-03-27] MEDS: diphenhydrAMINE HCl INJ 50 MG/ML VIAL 25 MG IV PUSH (23:45)
[2024-03-28] MEDS: DEXTROSE 5%/0.45% SOD CHL 1,000 ML 125 ML IV CONT (01:23)
[2024-03-28] MEDS: LORATADINE 10 MG TABLET PO ×2 (01:39→16:58)
--- NOTE | 2024-03-28 01:43 | PC.NURSE ---
2215- pt admitted to room 281, oriented to policies, procedures and general room setup. Pt arrived in stable condition.
--- NOTE | 2024-03-28 01:44 | PC.NURSE ---
0130- Pt c/o itching unrelieved by destin and jenn, spoke with Kim Berger- order received for Nubain 3mg q 3 hours IVP however this med is unavailable in pharmacy, order placed for Claratin 10mg po x1 now.
[2024-03-28] MEDS: ACETAMINOPHEN 325 MG TABLET 650 MG PO ×4 (04:13→22:51)
[2024-03-28] MEDS: KETOROLAC 15 MG/ML VIAL (*BKC) IV PUSH ×3 (04:14→16:58)
[2024-03-28 04:22] VITALS: BP 118/69; PULSE 82; RESP 16; TEMP 37; O2SAT 100
[2024-03-28 05:29] LABS: Basophils Absolute Auto 0.1 K/mm3 (0.0-0.1); Basophils Percent Auto 0.3 % (0.2-1.2); Eosinophils Percent Auto 0.2 % (0-4.4); Hematocrit 32.2 % (37.0-47.0); Hemoglobin 10.2 g/dL (12.0-15.0); Immature Granulocyte Absolute 0.08 K/mm3 (0.00-0.031); Immature Granulocyte Percent A 0.5 % (0-0.5); Lymphocytes Absolute Auto 2.13 K/mm3 (0.9-3.2); Mean Corpuscular HGB Conc 31.7 g/dl (32-36); Mean Corpuscular Hemoglobin 29.1 pg (26-34); Mean Corpuscular Volume 91.7 fl (80-100); Mean Platelet Volume 10.5 fl (7.4-10.4); Monocytes Absolute Auto 1.1 K/mm3 (0.1-0.6); Monocytes Percent Auto 6.4 % (2.6-8.5); Neutrophils Absolute Auto 14.3 K/mm3 (1.3-6.7); Neutrophils Percent Auto 80.6 % (45.5-73.1); Platelet Count Result 224 k/mm3 (150-375); Red Blood Count 3.51 M/mm3 (4.2-5.4); Red Cell Distribution Width 15.5 % (11.5-14.5); White Blood Count 17.7 K/mm3 (4.5-10.0)
[2024-03-28] MEDS: SIMETHICONE 80 MG TAB.CHEW PO ×3 (07:51→16:57)
--- NOTE | 2024-03-28 07:58 | PM.OBPNVD ---
OB - PN: Subj Subjective Date/time seen: 03/28/24 07:58 Patient comments: no complaints, pain well controlled, tolerating diet and flatus present OB - PN: Obj Data Labs 03/28/24 04:03 Labs: Laboratory Results - last 24 hr 03/28/24 04:03 WBC 17.7 H RBC 3.51 L Hgb 10.2 L Hct 32.2 L MCV 91.7 D MCH 29.1 MCHC 31.7 L RDW 15.5 H Plt Count 224 MPV 10.5 H Immature Gran % (Auto) 0.5 Neut % (Auto) 80.6 H Lymph % (Auto) 12.0 L Bracken % (Auto) 6.4 Eos % (Auto) 0.2 Baso % (Auto) 0.3 Lymph # (Auto) 2.13 Bracken # (Auto) 1.1 H Eos # (Auto) 0.0 Baso # (Auto) 0.1 Abs Immat Gran (auto) 0.08 H Absolute Neuts (auto) 14.3 H Absolute Nucleated RBC 0.000 Nucleated RBC % 0.0 OB - PN A/P Plan day: 1 Comments: Post Op LTCS - no problems, routine recovery Time Spent With Patient Time: Total time spent is greater than 50% in coordination of care (as documented) at patient's floor/unit and/or counseling patient: Exam Const: General: cooperative, healthy appearing, comfortable and no acute distress Resp: Auscultation: no crackles, no rales, no rhonchi and no wheezes Cardio: Rhythm: regular rhythm Heart sounds: no click and no murmurs GI: Inspection: non-distended Auscultation: normal bowel sounds Extrem: General: normal to inspection, no pedal edema and no calf tenderness
[2024-03-28] MEDS: DOCUSATE SODIUM 100 MG CAPSULE PO ×2 (08:04→16:59)
[2024-03-28] MEDS: MULTIVIT/MIN/PREN/FOL AC/IRON TABLET 1 TAB PO (08:05)
[2024-03-28] MEDS: buPROPion HCL XL (24 HR) 150 MG TABCR PO (08:05)
[2024-03-28] MEDS: SERTRALINE HCL 50 MG TABLET 150 MG PO (08:06)
[2024-03-28 08:15] VITALS: BP 118/66; PULSE 69; RESP 18; TEMP 37.7; O2SAT 99
[2024-03-28 12:13] VITALS: BP 110/67; PULSE 87; RESP 16; TEMP 37.2; O2SAT 97
--- NOTE | 2024-03-28 14:44 | WPDANLDPN2 ---
Anes-Prog Note L&D Date/Time: 03/28/24 14:44 Comfortable throughout: labor, delivery and section Neuraxial method: epidural Epidural/Spinal procedure site: tender Neuro status: Neuro function grossly intact. Cardiovascular status: normal Respiratory status: normal Airway patency: baseline Mental status: baseline Post-Op hydration status: normal Vital Signs: Last Vital Signs Temp 37.2 C 03/28/24 12:13 Pulse 87 03/28/24 12:13 Resp 16 03/28/24 12:13 BP 110/67 03/28/24 12:13 Pulse Ox 97 03/28/24 12:13 O2 Del Method Room Air 03/27/24 21:30 Pain score (VAS): 3/10 I/O: Intake & Output 03/27/24 03/28/24 03/28/24 23:59 07:59 15:59 Intake Total 50 500 240 Output Total 495 900 800 Balance -445 400 -560 Post-procedural complaints: pruritis moderate, treatment effective Patient feedback: Patient satisfied with anesthetic care.
--- NOTE | 2024-03-28 14:45 | WPDANLDNPN2 ---
Anes-Prog Note L&D-Neuraxial Date/Time: 03/28/24 14:45 Neuraxial medications: epidural PF morphine Opiod-related complaints: pruritis moderate, treatment effective Patient feedback: Patient satisfied with post-operative pain management.
--- NOTE | 2024-03-28 16:49 | PC.NURSE ---
[id number] Introductions were made, then consulted with patient to assess needs related to . Discussed with mother her?plans to feed?her infant and the?experience so far. Mother had planned on but baby is in level II nursery at this time. Mother has brought her own breast pump and would like help setting that up, she has a Spectra Pump. Instructions given on cleaning, care, usage, that there should be no pain, pumping schedule for milk production, collection, and storage of human milk. Patient was assessed for correct placement, flange size, to pump for comfort and nipple stretching/stimulation for adequate milk production every 3 hours (8 times in 24 hours) 1-2 times at night. Both of mother's nipples are inverted, when using the breast pump, her right nipple is everted and she did have a few drops of colostrum expressed but her left nipple only slightly everted and no drops of colostrum seen. No pain reported with pumping. Mother also told the RN that Dr. Jay had advised her that her milk supply may be affected by the medications she is currently taking listed in her home medication list. RN also went over mother's medication list with Dr. Tabares, [facility] [employer]. Parents are encouraged to record the pumping schedule on the feeding sheet.?Mother voiced understanding of the education shared along with mom/baby guide/breast pump handouts and the pump measurement, flange fit handout for additional resource information. Resources provided for inpatient and outpatient services with the feeding sheet, mom/baby guide and name written on the communication board. Mother voiced understanding of information and will call if there is a request for assistance. Reported to the Primary RN.
[2024-03-28] MEDS: FERROUS SULFATE DRIED 142 MG TABCR PO (17:20)
--- NOTE | 2024-03-28 17:55 | PC.NURSE ---
1652. Introductions were made and assistance was offered. Mom reports she has had no pain with pumping so far. Resources provided for inpatient and outpatient services with the feeding sheet, mom/baby guide and name/number written on the communication board. Mother voiced understanding of information and will call if there is a request for assistance. Reported to the Primary RN.
[2024-03-28 18:40] VITALS: BP 119/83; PULSE 79; RESP 12; TEMP 36.8; O2SAT 96
[2024-03-28] MEDS: ARIPiprazole 10 MG TABLET PO (21:10)
[2024-03-28] MEDS: IBUPROFEN 600 MG TABLET PO (22:51)
[2024-03-29] MEDS: IBUPROFEN 600 MG TABLET PO ×3 (04:43→19:00)
[2024-03-29] MEDS: ACETAMINOPHEN 325 MG TABLET 650 MG PO ×3 (04:43→19:00)
--- NOTE | 2024-03-29 07:38 | PM.OBPNVD ---
OB - PN: Subj Subjective Date/time seen: 03/29/24 07:38 Interval history: pp day 2 doing well baby level 2 OB - PN: Obj Data Labs 03/28/24 04:03 OB - PN A/P Plan day: 2 Plan: routine care Time Spent With Patient Time: Total time spent is greater than 50% in coordination of care (as documented) at patient's floor/unit and/or counseling patient: Review of Systems Review of Systems: All systems reviewed & are unremarkable except as noted in HPI and below Exam Const: General: cooperative and healthy appearing Resp: Effort & Inspection: normal respiratory effort Cardio: Rate: regular rate GI: Other: incision CDI Skin: General skin exam: normal color
[2024-03-29 09:00] VITALS: BP 124/74; PULSE 66; RESP 18; TEMP 36.4; O2SAT 100
[2024-03-29] MEDS: SIMETHICONE 80 MG TAB.CHEW PO ×2 (09:21→12:18)
[2024-03-29] MEDS: buPROPion HCL XL (24 HR) 150 MG TABCR PO (09:22)
[2024-03-29] MEDS: MULTIVIT/MIN/PREN/FOL AC/IRON TABLET 1 TAB PO (09:22)
[2024-03-29] MEDS: FERROUS SULFATE DRIED 142 MG TABCR PO ×2 (09:22→19:00)
[2024-03-29] MEDS: SERTRALINE HCL 50 MG TABLET 150 MG PO (09:22)
[2024-03-29] MEDS: DOCUSATE SODIUM 100 MG CAPSULE PO ×2 (09:22→19:00)
[2024-03-29 19:00] VITALS: BP 128/82; PULSE 69; RESP 18; TEMP 37.1; O2SAT 98
[2024-03-29] MEDS: ARIPiprazole 10 MG TABLET PO (22:05)
[2024-03-30] MEDS: IBUPROFEN 600 MG TABLET PO ×2 (02:10→09:08)
[2024-03-30] MEDS: ACETAMINOPHEN 325 MG TABLET 650 MG PO ×2 (02:10→09:09)
[2024-03-30 08:05] VITALS: BP 126/87; PULSE 58; RESP 18; TEMP 36.6; O2SAT 99
--- NOTE | 2024-03-30 08:47 | PM.OBPNVD ---
OB - PN: Subj Subjective Date/time seen: 03/30/24 08:47 Interval history: pp day 3 doing well desires d/c home OB - PN: Obj Data Labs 03/28/24 04:03 OB - PN A/P Plan day: 3 Plan: routine care and discharge home Time Spent With Patient Time: Total time spent is greater than 50% in coordination of care (as documented) at patient's floor/unit and/or counseling patient: Review of Systems Review of Systems: All systems reviewed & are unremarkable except as noted in HPI and below Exam Const: General: cooperative, healthy appearing and comfortable Resp: Effort & Inspection: normal respiratory effort Cardio: Rate: regular rate GI: Other: incision CDI
--- NOTE | 2024-03-30 08:51 | PM.OBDSVD ---
DS: Admitting Diagnosis Discharge Date 03/30/24 Admitting Diagnosis IOL, LGA DS: Discharge Diagnosis Discharge Diagnosis (1) Delivery by section: Status: Acute OB - DS: Summary OB Procedures : None OB Procedures Intrapartum: OB Procedures: : None Peripartum Data Procedures: Procedures Operation Date: 03/27/24 18:30 Actual Procedure Side Surgeon p Section Not Applicable Kamar Rivera MD Time Spent with Patient Time attestation: Total time spent providing and/or coordinating discharge services: Discharge Plan Discharge Attending physician on discharge: Kamar Rivera Discharging Clinician: Marnie Membreno Patient Disposition: Home, Self-Care Activity: pelvic rest Diet: regular Patient Instructions: Antibiotic Form Stand Alone Forms: General Discharge Information Follow-up/Referrals: Kamar Rivera MD [Physician] - 1 Week Marnie Membreno CNM [Certified Nurse Event Specialist Food Demonstrator] - 1 Week (akin out of town see sp) Discharge Medications: New hydrocodone-acetaminophen 5-325 mg Tablet 1 tablet PO Q3H PRN (Reason: Breakthrough Pain Rated 4-6) 15 Days Qty: 30 0RF ibuprofen 600 mg Tablet 600 mg PO Q6H Qty: 30 0RF Continued naltrexone 1.5 mg capsule 3 mg PO DAILY Classic 28 mg iron- 800 mcg Tablet 1 tablet PO DAILY sertraline [Zoloft] 100 mg tablet 150 mg PO DAILY bupropion HCl [Wellbutrin XL] 150 mg tablet extended release 24 hr 150 mg PO QAM Qty: 90 3RF aripiprazole 10 mg tablet 10 mg PO DAILY Qty: 90 0RF Discontinued ferrous sulfate 325 mg (65 mg iron) Tablet 45 mg PO BID aspirin 81 mg Tablet 162 mg PO DAILY Date of admission: 03/27/24 04:55 Primary Care Provider: Errol Jay Admitting Provider: Kamar Rivera Attending physician on admission: Marnie Membreno Condition: Stable
[2024-03-30] MEDS: SIMETHICONE 80 MG TAB.CHEW PO (09:08)
[2024-03-30] MEDS: buPROPion HCL XL (24 HR) 150 MG TABCR PO (09:08)
[2024-03-30] MEDS: SERTRALINE HCL 50 MG TABLET 150 MG PO (09:09)
[2024-03-30] MEDS: MULTIVIT/MIN/PREN/FOL AC/IRON TABLET 1 TAB PO (09:09)
[2024-03-30] MEDS: DOCUSATE SODIUM 100 MG CAPSULE PO (09:09)
[2024-03-30] MEDS: LORATADINE 10 MG TABLET PO (09:10)
[2024-03-30] MEDS: FERROUS SULFATE DRIED 142 MG TABCR PO (09:10)
--- NOTE | 2024-03-30 11:00 | PC.NURSE ---
Mother verbalizes she is able to independently latch with appropriate positioning and alignment. She denies any nipple discomfort and is responsively . Infant is currently meeting outcomes for weight, output, jaundice, blood sugar and feeding frequencies of 8-12 times in 24 hours. Mother declines any additional assistance or education at this time. Mother is encouraged to call for assistance if her infant doesn?t latch, pain with latching, questions or concerns. Mother voiced understanding of information shared along with the mom/baby guide for an additional resource. Reported to the Primary RN.
[2024-04-01 11:33] VITALS: BP 129/80; PULSE 71; RESP 18; TEMP 36.9; O2SAT 100
== END 2024-03-30 11:32 | disposition home or self-care (01) | DRG 788 ==
LOC: ANHOB2 03-30 09:21 → ANHLDR 04-01 11:02 → ANHOB2 04-01 11:02
PROVIDERS: Advanced Practice Midwife; Admitting Provider Obstetrics & Gynecology; PCP Family Medicine; Visit Provider Obstetrics & Gynecology
PROC: 10D00Z1 Extraction of Products of Conception, Low, Open Approach (ICD-10-PCS; CPT 59514; principal; 2024-03-27 18:30)
DX: O36.63X0 Maternal care for excessive fetal growth, third trimester, not applicable or unspecified (principal); O76 Abnormality in fetal heart rate and rhythm complicating labor and delivery; O69.81X0 Labor and delivery complicated by cord around neck, without compression, not applicable or unspecified; O99.344 Other mental disorders complicating childbirth; F41.8 Other specified anxiety disorders; O99.02 Anemia complicating childbirth; D64.9 Anemia, unspecified; Z3A.39 39 weeks gestation of pregnancy; Z37.0 Single live birth; Z86.16 Personal history of COVID-19
CPT/HCPCS: 36415; 85025; 86592; 86703; 86850; 86900; 86901; A9270; G0432; J0456; J1200; J1885; J2175; J2274; J2371; J2405; J2590; J2795; J7030; J7120

== ENCOUNTER 2024-04-01 11:54 | Outpatient (CLI) | payer BC, SELFPAY ==
--- NOTE | ~2024-04-01 | US_ITS ---
RIGHT LOWER EXTREMITY VENOUS ULTRASOUND Ordering provider: Kamar Rivera MD History: . right foot and leg swelling . Comparison: None. FINDINGS: --COMMON FEMORAL: Patent and free of thrombus. Normal compressibility, phasic flow and augmentation. --PROXIMAL SUPERFICIAL FEMORAL: Patent and free of thrombus. Normal compressibility, phasic flow and augmentation. --DISTAL SUPERFICIAL FEMORAL: Patent and free of thrombus. Normal compressibility, phasic flow and au gmentation. --POPLITEAL: Patent and free of thrombus. Normal compressibility, phasic flow and augmentation. --POSTERIOR TIBIAL: Patent and free of thrombus. Normal compressibility, phasic flow and augmentation . IMPRESSION: Negative right lower extremity venous US. No deep vein thrombosis. Reviewed, dictated and finalized at location A. US ENUMERATOR
--- NOTE | 2024-04-01 12:48 | PC.NURSE ---
Pt here for follow up and swelling noted in right foot. Venous dopplers ordered per Dr. Rivera. See follow up notes for VS and assessment.
--- NOTE | 2024-04-01 12:57 | PC.NURSE ---
Called Dr. Rivera with doppler results. September D/C home.
== END 2024-04-01 13:01 | disposition home or self-care (01) ==
PROVIDERS: PCP Obstetrics & Gynecology; Visit Provider Obstetrics & Gynecology
DX: M79.89 Other specified soft tissue disorders (principal)
CPT/HCPCS: 93971; A9270

== ENCOUNTER 2024-12-02 07:38 | Outpatient (CLI) | payer BC, SELFPAY ==
--- OUTSIDE RECORDS SUMMARY | 2024-12-02 07:51 | XMS_ITS | Encounter Summary ---
Author Organization [facility] Health Address [address] [place] [address] Care Team Providers Care Attendant Honor Bar Name Role Phone Unavailable Primary Care Provider Unavailabl e Encounter Details Date Type Department Care Team (Late st Contact Info) Description 11/15/2024 Lab Requisition [facility] [address] [place] [address] Mannie Baker MD [address] [place] [address] Encounter for assisted reproductive fertility procedure cycle Social History Tobacco Use Types Packs/Day Years Used Date Smoking Tobacco: Never Smokeless Tobacco: Never Alcohol Use Standard Drinks/Week Comments Not Currently 0 (1 standard drink = 0.6 oz pur e alcohol) [place] Depression Scale Answer Date Recorded [place] Depression Scale Total 3 10/18/2023 The thought of harming myself has occurred to me . Never 10/18/2023 Comments No Sex and Gender Information Value Date Recorded Sex Assigned at Not on file Legal Sex Female 8:16 AM CDT Gender Identity Not on file Sexual Orientation Not on file documented as of this encounter Plan of Treatment Not on file documented as of this encounter Procedures Procedure Name Priority Date/Time Associated Diagnosis Comments HCG BETA BLOOD QUANTITATIVE STAT 11/15/2024 7:26 AM CDT Encounter for assisted reproductive fertility procedure cycle documented in this encounter Results * HCG BETA BLOOD QUANTITATIVE (11/15/2024 7:26 AM CDT) hCG Quantitative <2.42 mIU/mL 11/16/19 11:23 AM CDT [facility] Blood BLOOD SPECIMEN / Unknown Venipuncture / Unknown 11/15/2024 7:26 AM CDT 11/15/2024 11:19 AM CDT Narrative [facility] - 11/15/2024 11:23 AM CDT hCG Reference Range, mIU/mL: Non Females 0-6.0 Perimenopausal Females ages 41-55* 0-7.7 Postmenopausal Females age >55* 0-14 Females, Weeks after Last Menstrual Period 0.2-1 week 5-50 1 - 2 weeks 50-500 2 - 3 weeks 100-5000 3 - 4 weeks 500-10,000 4 - 5 weeks 1000-50,000 5 - 6 weeks 10,000-100,000 6 - 8 weeks 15,000-200,000 2 - 3 months 10,000-100,000 Trophoblastic Disease >100,000 *In higher than expected hCG in females > age 40, a serum FSH >20 IU/L makes unlikely. us Mannie Baker MD LAB - CHEMISTRY ORDERABLES Fin al Result [facility] [address] [place] [address] documented in this encounter Visit Diagnoses Diagnosis Encounter for assisted reproductive fertility procedure cycle documented in this encounter
--- OUTSIDE RECORDS SUMMARY | 2024-12-02 07:51 | XMS_ITS | Encounter Summary ---
Author Organization [facility] Health Address [address] [place] [address] Care Team Providers Care Skip Operator Name Role Phone Unavailable Primary Care Provider Unavailabl e Encounter Details Date Type Department Care Team (Late st Contact Info) Description 11/21/2024 Lab Requisition [facility] [address] [place] [address] Mannie Baker MD [address] [place] [address] Social History Tobacco Use Types Packs/Day Years Used Date Smoking Tobacco: Never Smokeless Tobacco: Never Alcohol Use Standard Drinks/Week Comments Not Currently 0 (1 standard drink = 0.6 oz pur e alcohol) [place] Depression Scale Answer Date Recorded [place] Depression Scale Total 3 10/18/2023 The thought [...] Procedure Name Priority Date/Time Associated Diagnosis Comments ESTRADIOL STAT 11/21/2024 7:20 AM CDT documented in this encounter Results * ESTRADIOL (11/21/2024 7:20 AM CDT) Estradiol 105 See Comment pg/mL 11/21/2024 7:07 PM CDT [facility] Blood BLOOD SPECIMEN / Unknown Venipuncture / Unknown 11/21/2024 7:20 AM CDT 11/21/2024 9:59 AM CDT Narrative [facility] - 11/21/2024 7:07 PM CDT Normal Menstruating Females Follicular Phase 21 - 251 pg/mL Midcycle 38 - 649 pg/mL Luteal Phase 21 - 312 pg/mL Postmenopausal Females NOT on HRT <10 - 28 pg/mL Postmenopausal Females on HRT <10 - 144 pg/mL Males 11 - 44 pg/mL This assay should NOT be used to assess estradiol levels for patients undergoing Fulvestrant or Mifepristone treatment. Structural and functional analogues of steroid hormones, including the estradiol molecule, have the potential to cause interference/cross reactivity with the Alinity i Estradiol assay. Samples from patients administered medications which inhibit tumor cell proliferation (e.g. CDK 4/6 inhibitors) may be subject to interference/cross reactivity with the Alinity i Estradiol assay. In addition, drugs which interfere with or activate production of steroid hormones (e.g. Aromatase inhibitors) may also interfere or cross react with the Alinity i Estradiol assay. In such cases, an alternate method such as chromatography should be used. Please order Estradiol Ultra-Sensitive [id number] if interference is suspected. us Mannie Baker MD LAB - CHEMISTRY ORDERABLES Fin al Result [facility] [address] [place] [address] documented in this encounter Visit Diagnoses Not on filedocumented in this encounter
--- OUTSIDE RECORDS SUMMARY | 2024-12-02 07:52 | XMS_ITS | Clinical Summary ---
Author Organization [facility] Address [address] [place] [address] Care Team Providers Care Clinical Nursing Intern Name Role Phone Unavailable Primary Care Provider Unavailabl e Source Comments [facility],non-owned Affiliates and Associated Physician Practices is amultiple site organization consisting of ambulatory clinics and hospital sitesin [place], [place], [place] and [place]. This disclosure is being madepursuant to the Care Everywhere program and may not contain all information available regarding this patient. Last updated 18.[facility] Allergies Active Allergy Reactions Criticality Noted Date Comments Oxycodone-Acetaminophen 08/07/2016 Medications * Be aware that medications may not be up to date on this document. Alwaysverify current medications with the patient. BuPROPion HCl (WELLBUTRIN PO) Take 150 mg by mouth once daily Active sertraline (Zoloft) 100 MG tablet 1 (one) tablet once daily Active ARIPiprazole (Abilify) 10 MG tablet Take 1 (one) tablet by mouth once daily Active Vit-DSS-Fe Fum-FA ( vitamin with iron) tablet Take 1 (one) tablet by mouth once daily Active aspirin (Aspirin) 81 MG chew tablet Take 1 (one) tablet by mouth once daily Active Encounters Date Type Department Care Team Description 11/21/2024 Lab Requisition [facility] [address] [place] [address] Mannie Baker MD 11/15/2024 Lab Requisition [facility] [address] [place] [address] Mannie Baker MD Encounter for assisted reproductive fertility procedure cycle from Last 3 Months Family History Relation Name Status Comments Father Alive Mother Alive Sister Alive Social History Tobacco Use Types Packs/Day Years Used Date Smoking Tobacco: Never Smokeless Tobacco: Never Tobacco Cessation:Counseling Given: Not Answered Alcohol Use Standard Drinks/Week Comments Not Currently 0 (1 standard drink = 0.6 oz pur e alcohol) [place] Depression Scale Answer Date Recorded [place] Depression Scale Total 3 10/18/2023 The thought of harming myself has occurred to me . Never 10/18/2023 Comments No Sex and Gender Information Value Date Recorded Sex Assigned at Not on file Legal Sex Female 8:16 AM CDT Gender Identity Not on file Sexual Orientation Not on file Last Filed Vital Signs Vital Sign Reading Time Taken Comments Blood Pressure 113/77 10/18/2023 9:19 AM CDT Pulse 68 10/18/2023 9:19 AM CDT Temperature 37.2 C (98.9 F) 10/04/2017 10:06 AM CDT Respiratory Rate 16 04/19/2017 12:07 PM UNDERGROUND CONDUIT INSTALLER Oxygen Saturation 98% 04/19/2017 12:07 PM UNDERGROUND CONDUIT INSTALLER Inhaled Oxygen Concentration - - Weight 73.1 kg (161 lb 3.2 oz) 10/18/2023 9:19 A M CDT Height 175.3 cm (5' 9) 10/18/2023 9:19 AM CDT Body Mass Index 23.81 10/18/2023 9:19 AM CDT Plan of Treatment Health Maintenance Due Date Last Done Comments HEPATITIS C SCREENING 11/09/2009 DTAP/TDAP/TD VACCINES (1 - Tdap) 11/13/2010 HEPATITIS B VACCINE (1 of 3 - 19+ 3-dose series) 11/13/2010 HPV VACCINE (1 - 3-dose SCDM series) 11/13/2018 COVID-19 VACCINE (1 - 2023-2 5 season) 2024 DEPRESSION SCREENING 05/08/2024 INFLUENZA VACCINE (#1) 2025 PAP SMEAR 08/30/2026 08/31/2023, 08/31/2023 ZOSTER VACCINE (1 of 2) 11/13/2041 HIV SCREENING Completed 01/12/2024, 09/07/2023 HIB VACCINE Aged Out No longer eligi ble based on patient's age to complete this topic MENINGOCOCCAL (Group B) VACCINE SHARED DECISION-MAKING Aged Out No longer eligible based on patient's age to complete this topic MENINGOCOCCAL GROUPS A/C/Y/W VACCINE Aged Out No longer eligible b ased on patient's age to complete this topic PNEUMOCOCCAL VACCINE Aged Out No long er eligible based on patient's age to complete this topic Procedures Procedure Name Priority Date/Time Associated Diagnosis Comments ESTRADIOL STAT 11/21/2024 7:20 AM CDT HCG BETA BLOOD QUANTITATIVE STAT 11/15/2024 7:26 AM CDT Encounter for assisted reproductive fertility procedure cycle from Last 3 Months Results * ESTRADIOL (11/21/2024 7:20 AM CDT) Estradiol 105 See Comment pg/mL 11/21/2024 7:07 PM CDT [facility] Blood BLOOD SPECIMEN / Unknown Venipuncture / Unknown 11/21/2024 7:20 AM CDT 11/21/2024 9:59 AM CDT Narrative [facility] - 11/21/2024 7:07 PM CDT Normal [...] should be used. Please order Estradiol Ultra-Sensitive [id number] if interference is suspected. us Mannie Baker MD LAB - CHEMISTRY ORDERABLES Fin al Result [facility] [address] [place] [address] * HCG BETA BLOOD QUANTITATIVE (11/15/2024 7:26 AM CDT) hCG Quantitative <2.42 mIU/mL 11/16/19 11:23 AM CDT [facility] Blood BLOOD SPECIMEN / Unknown Venipuncture / Unknown 11/15/2024 7:26 AM CDT 11/15/2024 11:19 AM CDT Narrative [facility] - 11/15/2024 11:23 AM CDT hCG [...] LAB - CHEMISTRY ORDERABLES Fin al Result Performing Organization Address [facility] Co de Phone Number [facility] [address] [place] [address] from Last 3 Months
[2024-12-02 08:32] LABS: Hematocrit 41.3 % (37.0-47.0); Hemoglobin 13.1 g/dL (12.0-15.0); Mean Corpuscular HGB Conc 31.7 g/dl (32-36); Mean Corpuscular Hemoglobin 28.4 pg (26-34); Mean Corpuscular Volume 89.6 fl (80-100); Platelet Count Result 334 k/mm3 (150-375); Red Blood Count 4.61 M/mm3 (4.2-5.4); White Blood Count 37.8 K/mm3 (4.5-10.0)
== END 2024-12-02 07:39 | disposition home or self-care (01) ==
PROVIDERS: PCP Family Medicine
DX: Z31.49 Encounter for other procreative investigation and testing (principal)
CPT/HCPCS: 36415; 84144; 85027